=== PATIENT | male | born 1995 | race African-American/Black ===

== ENCOUNTER 2019-01-18 21:54 | Emergency (ER) | payer BC, OTHER ==
[2019-01-18 22:33] VITALS: TEMP 99.3; BMI 18.3
--- NOTE | 2019-01-18 22:37 | PDOC ---
History of Present Illness - General Chief Complaint: Chest Pain Stated Complaint: CHEST PAIN Time Seen by Provider: 01/18/19 22:36 - History of Present Illness Initial Comments: 23 year old male with PMH of seasonal allergies presenting with chest pain since 12:00 today while sitting in class. Describes the chest pain as left sided , intermittent, without radiation, exacerbating factors, or relieving factors. Denies recent trauma to chest, palpitations, SOB, fevers, chills, cough, or other symptoms, He was up late last night and did drink a lot more caffeine than usual because of his school work. He has never had any chest pain in the past and doesn't smoke, drink, use illicit substances, or have family history of chest pain. 01/18/19 22:54 Past History - Past Medical History Allergies/Adverse Reactions: Allergies Allergy/AdvReac Type Severity Reaction Status Date / Time No Known Allergies Allergy Verified 01/18/19 22:33 - Psycho Social/Smoking Cessation Hx Smoking History: Never smoked Review of Systems - Review of Systems Constitutional: No: Chills, Diaphoresis, Fever, Loss of Appetite HEENTM: No: Recent change in vision, Double Vision, Mouth Pain Respiratory: No: Cough, Orthopnea, Shortness of Breath Cardiac (ROS): Yes: Chest Pain. No: Irregular Heart Rate, Syncope, Chest Tightness ABD/GI: No: Diarrhea, Nausea, Vomiting : No: Burning, Dysuria, Discharge, Frequency Musculoskeletal: No: Back Pain, Gout, Joint Swelling Integumentary: No: Lumps, Pallor, Pruritus Neurological: No: Headache, Numbness, Tingling, Tremors Psychiatric: No: Anxiety, Depression Hematologic/Lymphatic: No: Anemia, Blood Clots, Easy Bleeding *Physical Exam - Vital Signs Last Vital Signs Temp Pulse Resp BP Pulse Ox 99.3 F 63 18 116/84 99 01/18/19 21:54 01/18/19 21:54 01/18/19 21:54 01/18/19 21:54 01/18/19 21:54 - Physical Exam General Appearance: Yes: Nourished, Appropriately Dressed. No: Apparent Distress HEENT: positive: EOMI, OMAR, Normal ENT Inspection, Normal Voice Neck: positive: Trachea midline, Normal Thyroid, Supple. negative: Tender, Rigid Cardiovascular: positive: Regular Rhythm, Regular Rate, Gallop/S3. negative: Edema, JVD, Tachycardia, Diastolic Murmur, Systolic Murmur Gastrointestinal/Abdominal: positive: Normal Bowel Sounds, Flat, Soft. negative : Tender Lymphatic: negative: Adenopathy, Tenderness Musculoskeletal: positive: Normal Inspection Extremity: positive: Normal Capillary Refill, Normal Inspection, Normal Range of Motion. negative: Tender Integumentary: positive: Normal Color, Dry, Warm Neurologic: positive: Fully Oriented, Alert, Normal Mood/Affect, Normal Response , Motor Strength 07/18 ED Treatment Course - LABORATORY CBC & Chemistry Diagram: 01/18/19 22:50 01/18/19 22:50 Medical Decision Making - Medical Decision Making 23 year old male with low risk factors for ACS presenting with franco pain after heavy caffeine usage. EKG demonstrating rate 57, WY 130, QRS 94, QTC 404, without ST elevations but some no specific replorization change sin anterior and inferior leads. D-dimer, troponin negative and other labs WNL. CXR clear. However, patietn still having chest pain despite Tylenol, asa, and toradol. Largest concern is for undiagnosed HOCM or other congenital cardiomyopathy. Will admit for observation as family feels unsafe with discharge. Hopeful plan is to get cardiac echo tomorrow morning. 01/19/19 01:09 Discharge - Discharge Information Problems reviewed: Yes Clinical Impression/Diagnosis: Chest pain Qualifiers: Chest pain type: unspecified Qualified Code(s): R07.9 - Chest pain, unspecified Condition: Fair - Admission Yes - Follow up/Referral - Patient Discharge Instructions - Post Discharge Activity
--- NOTE | 2019-01-18 22:45 | PDOC ---
Attending Attestation - Resident Resident Name: Kelvin Patel - ED Attending Attestation I have performed the following: I have examined & evaluated the patient, The case was reviewed & discussed with the resident, I agree w/resident's findings & plan - HPI HPI: 01/18/19 23:50 see resident hpi - Physicial Exam PE: 01/18/19 23:50 agree with resident exam - Medical Decision Making 01/18/19 23:50 23-year-old male with chest pressure and shortness of breath since 12 PM today EKG shows a sinus rhythm with diffuse J-point elevation, likely normal for patient's age though plan for troponin, d-dimer and reevaluation If pain-free patient will be discharged home with recommended outpatient cardiology follow-up If pain persistent will hold overnight for observation with cardiology recommended in the morning
[2019-01-18 23:17] LABS: BASO % 0.5 % (0-2.0); HEMATOCRIT 40.6 % (35.4-49); HEMOGLOBIN 13.9 GM/dL (11.7-16.9); MCHC 34.4 g/dl (32.0-35.9); MEAN CELL VOLUME 90.1 fl (80-96); MEAN PLT VOLUME 8.8 fl (7.5-11.1); MONO % 5.3 % (3.8-10.2); NEUT % 53.2 % (42.8-82.8); PLATELET COUNT 200 K/MM3 (134-434); RDW 13.7 % (11.9-15.9)
[2019-01-18 23:35] LABS: INR 1.15 (0.83-1.09); PROTHROMBIN TIME (PATIENT) 13.6 SEC (9.7-13.0)
[2019-01-18 23:51] LABS: ALBUMIN 3.5 g/dl (3.4-5.0); BILIRUBIN,TOTAL 0.6 mg/dL (0.2-1); BLOOD UREA NITROGEN 14.2 mg/dL (7-18); CALCIUM 8.3 mg/dL (8.5-10.1); CREATININE 1.1 mg/dL (0.55-1.3); TOT PROT 6.2 g/dl (6.4-8.2)
[2019-01-19] MEDS ORDERED: KETOROLAC TROMETHAMINE 15 MG/ML VIAL IVPUSH ONE (00:22)
[2019-01-19] MEDS ORDERED: MAG HYDROX/AL HYDROX/SIMETH 30 ML UNIT-DOSE CUP PO ONE (00:25)
[2019-01-19] MEDS ORDERED: FAMOTIDINE 20 MG/50 ML IVPB 20 MG/50 ML MG IVPB ONE ×2 (00:25→00:45)
[2019-01-19] MEDS ORDERED: KETOROLAC TROMETHAMINE 15 MG/ML VIAL ONE (00:44)
[2019-01-19] MEDS ORDERED: MAG HYDROX/AL HYDROX/SIMETH 30 ML UNIT-DOSE CUP ONE (00:44)
[2019-01-19] MEDS ORDERED: ASPIRIN 81 MG CHEWABLE TABLETS PO ONE (01:09)
[2019-01-19] MEDS ORDERED: ASPIRIN COATED 81 MG TABLET.EC ONE (01:22)
[2019-01-19] MEDS ORDERED: ASPIRIN 81 MG CHEWABLE TABLETS ONE (01:23)
[2019-01-19 02:45] VITALS: BP 118/80; PULSE 60
--- NOTE | 2019-01-19 10:28 | EKG ---
Test Reason : Blood Pressure : / mmHG Vent. Rate : 057 BPM Atrial Rate : 057 BPM P-R Int : 130 ms QRS Dur : 094 ms QT Int : 416 ms P-R-T Axes : 006 072 064 degrees QTc Int : [address] ELEVATION, CONSIDER EARLY REPOLARIZATION BORDERLINE ECG WHEN COMPARED WITH ECG OF 03-FEB-2002 15:39, PREVIOUS ECG IS PRESENT Confirmed by JACE SANCHEZ, BRIGIDA ([id number]) on 01/19/2019 10:28:23 AM Referred By: Confirmed By:BRIGIDA MCCORMICK MD
== END 2019-01-19 02:43 | disposition home or self-care (01) ==
LOC: JER 21:54
PROC: 3E033GC Introduction of Other Therapeutic Substance into Peripheral Vein, Percutaneous Approach (ICD-10-PCS; principal; 2019-01-18)
PROC: 3E0333Z Introduction of Anti-inflammatory into Peripheral Vein, Percutaneous Approach (ICD-10-PCS; 2019-01-18)
DX: R07.9 Chest pain, unspecified (principal)
CPT/HCPCS: 36415; 71046-TC-FY; 80053; 82550; 84484; 85025; 85379; 85610; 93005; 93010; 99284-25